=== PATIENT | male | born 1955 ===

== ENCOUNTER → 2021-09-12 | Outpatient (CLI) | payer BC ==
[~2021-09-12] MED LIST: AMLO-186 PO; DEXAMETHASONE PRES.FREE 10 MG/ML VIAL. ONE; DICL50TA2 PO; IOHEXOL 180 MG/ML 10 ML VIAL. ONE; LOSA-73 PO; MESA0.372 PO; POTA-112 PO; SITA1TAB7 PO
--- NOTE | 2021-09-12 11:49 | PDOC1 ---
INITIAL PAIN CONSULT DATE OF SERVICE: DOS: DATE: 09/12/21 TIME: 11:43 CHIEF COMPLAINT: Chief Complaint: Low back and left lower extremity pain HISTORY OF PRESENT ILLNESS: 66-year-old male presents with history of pain in the low back left lower extremity for many years starting 1981 patient reports has had 4 back surgeries since that time over the years when a piece of equipment fell on him when he was at work in 1981 patient reports has had significant pain low back and left lower extremity though is maintained working activity and functionality very effectively over the years patient reports the pain now is increasing over the past 6 to 8 months or so in the low back left lower extremity posterior gluteus posterior thigh posterior calf from the lateral anterior thigh as well but mos tly the posterior aspect and on the left side of the low back patient describes as constant sharp throbbing tingling with numbness change during the day some cramping activity as well patient reports it does generally awaken him from sleep at night and is better with sitting or laying down patient reports it does not affect his bowel bladder control does affect his ability to walk otherwise not use any assistive devices. Patient is had chiropractic treatment the past also physical therapy transforaminal injections at outside facility as well and chiropractic treatment all of which were helpful but only temporarily patient reports his pain level is a 8-9 at its worst for its least and a 6 at its average and is a 6 today. Patient describes his disability rating 0-10 10 being the worst is a 9 with family home responsibilities recreation social activity and life support activity 8 with sexual behavior and self-care activities. Patient of MRI scan showing significant lumbar spinal stenosis L1-L2 3 moderate canal stenosis at L3-4 with previous laminectomy at L1-L2 3 and L3-4 with a subarticular disc herniation which extends inferiorly at L2-3 as well. Patient reports a loss of motor function with significant fatigability of the left lower extremity with ambulation. 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, tonsillectomy, left knee surgery, right knee surgery CURRENT MEDICATIONS: Current Meds: Active Scripts Medications Dose Route/Sig Max Daily Dose Days Date Category Losartan Potassium 50 Mg Tablet 50 Mg PO DAILY 09/12/21 Reported Janumet 50-500 Mg Tablet (Sitagliptin Phos/Metformin Hcl) 1 Each Tablet 1 Tab PO BID 09/12/21 Reported Apriso (Mesalamine) 0.375 Gm Cap.er.24h 800 Mg PO TID 09/12/21 Reported Klor-Con 10 (Potassium Chloride) 10 Meq Tablet.er 1 Tab PO DAILY 30 09/12/21 Reported Diclofenac Potassium 50 Mg Tablet 1 Tab PO PRN TID 09/12/21 Reported Amlodipine Besylate 5 Mg Tablet 5 Mg PO DAILY 09/12/21 Reported ALLERGIES; Allergies: Coded Allergies: No Known Drug Allergies (Unverified , 09/12/21) FAMILY HISTORY: Family Hx: No major medical problems or conditions that he is aware of. SOCIAL HISTORY: Social Hx: Patient does not drink alcohol does not smoke quit many years ago does not use any illegal illicit or recreational drugs is lives with his spouse lives in [facility] REVIEW OF SYSTEMS: ROS: Positive for those items mentioned in history of present illness, all systems are reviewed, otherwise negative ,and are complete full and well-documented on patient's chart. PHYSICAL EXAM: VS: Blood pressure is 140/85 pulse 72 respirations 18 temperature 98.1 F height is 5 feet 8 inches weight 210 pounds. PE: PHYSICAL EXAMINATION: GENERAL: The patient is awake, alert, oriented, appropriate, very pleasant in demeanor HEENT: Shows normocephalic, atraumatic. Extraocular movements are intact and symmetrical. Full elizabeth and mustache. Oral cavity: Mucous membranes moist and pink. NECK: Shows anterior throat supple without palpable lymphadenopathy noted. Swallow reflex symmetrical. CHEST: Shows normal on inspection. Breath sounds are clear bilaterally, coarse but no rales rhonchi or wheezes auscultated. HEART: Shows S1, S2 clear. No murmurs auscultated. ABDOMEN: Soft, nontender, nondistended. No palpable organomegaly is noted. BACK: Shows spine grossly in the midline. Normal-appearing cervical lordotic curvature. There is moderately increased thoracic kyphosis, some flattening of the lumbar lordotic curvature, with well-healed surgical scarring noted.. Lumbar paraspinous muscles show symmetrical on inspection, on palpation shows some moderate tenderness diffusely throughout the upper, middle and lower distribution of the paraspinous muscles bilaterally and also into the lower thoracic paraspinous musculature, firm and tender, but without specific trigger points, without radiation of pain. The patient has good rotational motion of the lumbar spine, both laterally as well as extension and flexion without significant difficulty. No tenderness over the spinous processes, sacrum or sacroiliac regions. EXTREMITIES: Lower extremities show deep tendon reflexes 1+ in the patellar and tendo calcaneus tendons. Motor exam is 5 on a scale of 5 with right dorsiflexion, extension, quadriceps and hamstring flexion and 4/5 on the left. Peripheral pulses are 1+ posterior tibial. No peripheral edema is noted bilaterally. Lower extremities are warm and dry to touch, equal in color and appearance. Straight leg raise noted to be positive on the left at approximately 40 degrees, right side is negative. Gaenslen's and Yeyo's maneuvers are negative bilaterally. SKIN: Shows warm and dry, good turgor. No edema. No sores, rashes or bruising throughout. IMPRESSION: Impression: 66-year-old male with long history low back left lower extremity pain in a radicular fashion MRI scan lumbar spine as noted Arthritis Type 2 diabetes Plan: Options were discussed with patient including conservative managements physical therapies interventional techniques. Patient would like to pursue interventional techniques. We discussed a lumbar epidural steroid injections description as well as anatomical models described procedure. Risks were discussed including but not limited to: Bleeding, infection, possibility of epidural hematoma and subsequent neurological compromise, dural puncture, headaches, spinal cord and/or nerve damage, side effects of steroid medication, and poor results regarding pain control. Patient understands and wished to proceed. Patient return to the clinic in approximate 4 weeks for follow-up, was counseled as to return appointment, activity level, and side effect to be aware of. Procedure is lumbar epidural steroid injection under local anesthetic using sterile prep and drape at the L5-S1 level using C-arm fluoroscopic guidance in both AP and lateral views medications injected is 20 mg dexamethasone +10mL preservative-free normal saline and 2 mL contrast- condition at discharge is stable patient tolerated procedure well had no complications. JANAY GRIFFIN MD Sep 12, 2021 11:49
--- NOTE | 2021-09-12 11:50 | PDOC4 ---
Procedure Note: ICD 10 Code: ICD 10 Code: M54.17 M51.7 M 48.07 M 96.1 Procedure Note: Patient was consented for lumbar epidural steroid injection with fluoroscopic guidance. Risks were discussed including but not limited to: Bleeding, infection, possibility of epidural hematoma and subsequent neurological compromise, dural puncture, headaches, spinal cord and/or nerve damage, side effects of steroid medication, and poor results regarding pain control. Patient understands and wished to proceed. Procedure is lumbar epidural steroid injection under local anesthetic using sterile prep and drape at the L5-S1 level using C-arm fluoroscopic guidance in both AP and lateral views medications injected is 20 mg dexamethasone +10mL preservative-free normal saline and 2 mL contrast- condition at discharge is stable patient tolerated procedure well had no complications. JANAY GRIFFIN MD Sep 12, 2021 11:50
== END | disposition home or self-care (01) ==
LOC: PNCL 10:26
PROVIDERS: ATTEND Anesthesiology
DX: M54.50 Low back pain, unspecified (principal); M51.17 Intervertebral disc disorders with radiculopathy, lumbosacral region; M48.07 Spinal stenosis, lumbosacral region; M96.1 Postlaminectomy syndrome, not elsewhere classified; M19.90 Unspecified osteoarthritis, unspecified site; I10 Essential (primary) hypertension; E11.9 Type 2 diabetes mellitus without complications; Z79.899 Other long term (current) drug therapy
CPT/HCPCS: 62323; J1100; Q9965

== ENCOUNTER → 2021-10-16 | Outpatient (CLI) | payer BC ==
--- NOTE | 2021-10-16 15:11 | PDOC ---
Progress Note - Pain Clinic Date of Service: DOS: DATE: 10/16/21 TIME: 15:07 Diagnosis: Dx: Lumbar radiculopathy with lumbar degenerative disc disease lumbar spinal stenosis and lumbar postlaminectomy syndrome History or Present Illness: HPI: 66-year-old male returns for follow-up status post lumbar epidural steroid injection x1. Patient reports 100% improvement in the pain in his left leg but now has a new pain pain rating to the right lower extremity which he did not have previously patient reports his left leg is doing very well reports pain on the right side radiating the posterior gluteus posterior thigh posterior calf not as intense as the left side but still significant and causing some increased pain with activity walking standing and changing positions patient reports generally does not awaken her from sleep at night but has over the past week about once a night patient reports no loss of motor function rates his pain a 7 on scale 10 is worse over the past week 5 on average 5 its least again this is all in the right lower extremity and low back patient reports that sharp and shooting now where the left leg is doing much better patient is increase his activity with the left side much more comfortably try with greater ease and comfort sleeping better for the most part. Patient reports no bowel or bladder incontinence. Physical Exam: VS: Blood pressure is 142/71 pulse 80 respirations 18 temperature 97.0 F weight is 213 pounds. PE: PHYSICAL EXAMINATION: GENERAL: The patient is awake, alert, oriented, appropriate, very pleasant in demeanor HEENT: Shows normocephalic, atraumatic. Extraocular movements are intact and symmetrical. Full elizabeth and mustache. Oral cavity: Mucous membranes moist and pink. Dentition is intact. NECK: Shows anterior throat supple without palpable lymphadenopathy noted. Swallow reflex symmetrical. CHEST: Shows normal on inspection. Breath sounds are clear bilaterally, coarse but no rales or rhonchi. HEART: Shows S1, S2 clear. No murmurs auscultated. ABDOMEN: Soft, nontender, nondistended. No palpable organomegaly is noted. BACK: Shows spine grossly in the midline. Normal-appearing cervical lordotic curvature. There is slightly increased thoracic kyphosis, some minor flattening of the lumbar lordotic curvature. Lumbar paraspinous muscles show symmetrical on inspection, on palpation shows some moderate tenderness diffusely throughout the upper, middle and lower distribution of the paraspinous muscles, but without specific trigger points, without radiation of pain. The patient has good rotational motion of the lumbar spine, both laterally as well as extension and flexion without significant difficulty. EXTREMITIES: Lower extremities show deep tendon reflexes 1+ in the patellar and tendo calcaneus tendons. Motor exam is 5 on a scale of 5 with right dorsiflexion, extension, quadriceps and hamstring flexion and 4/5 on the left. Peripheral pulses are 1+ posterior tibial. No peripheral edema is noted bilaterally. Lower extremities are warm and dry. SKIN: Shows warm and dry, good turgor. No edema. No sores, rashes or bruising throughout. Procedure: Procedure: Options discussed with patients old chart was reviewed as his current medication regimen updated current review of systems updated today as well. We will proceed with a lumbar epidural steroid injection today with fluoroscopic guidance. Risks were discussed including but not limited to: Bleeding, infection, possibility of epidural hematoma and subsequent neurological compromise, dural puncture, headaches, spinal cord and/or nerve damage, side effects of steroid medication, and poor results regarding pain control. Patient understands and wished to proceed. Patient will return to the clinic in approx imate 2 weeks for follow-up, was counseled as to return appointment, activity level, and side effects to be aware of. Medication Injected: Med Injected: Procedure is lumbar epidural steroid injection under local anesthetic using sterile prep and drape at the L5-S1 level using C-arm fluoroscopic guidance in both AP and lateral views medications injected is 20 mg dexamethasone +10mL preservative-free normal saline and 2 mL contrast- condition at discharge is stable patient tolerated procedure well had no complications. Condition at Discharge: Condition at Discharge: Condition at discharge stable, patient tolerated the procedure well and had no complications. JANAY GRIFFIN MD Oct 16, 2021 15:11
--- NOTE | 2021-10-16 15:11 | PDOC4 ---
Procedure Note: ICD 10 Code: ICD 10 Code: M54.17 M51.7 M4 8.07 M 96.1 Procedure Note: Patient was consented for lumbar epidural steroid injection with fluoroscopic guidance. Risks were discussed including but not limited to: Bleeding, infection, possibility of epidural hematoma and subsequent neurological compromise, dural puncture, headaches, spinal cord and/or nerve damage, side effects of steroid medication, and poor results regarding pain control. Patient understands and wished to proceed. Procedure is lumbar epidural steroid injection under local anesthetic using sterile prep and drape at the L5-S1 level using C-arm fluoroscopic guidance in both AP and lateral views medications injected is 20 mg dexamethasone +10mL preservative-free normal saline and 2 mL contrast- condition at discharge is stable patient tolerated procedure well had no complications. JANAY GRIFFIN MD Oct 16, 2021 15:11
== END | disposition home or self-care (01) ==
LOC: PNCL 13:11
PROVIDERS: ATTEND Anesthesiology
DX: M51.16 Intervertebral disc disorders with radiculopathy, lumbar region (principal); M48.061 Spinal stenosis, lumbar region without neurogenic claudication; M96.1 Postlaminectomy syndrome, not elsewhere classified; Z79.899 Other long term (current) drug therapy
CPT/HCPCS: 62323; J1100; Q9965

== ENCOUNTER 2021-10-21 21:59 | Emergency (ER) | payer BC ==
[~2021-10-21] VITALS: Ht 172.7 cm; Wt 95.5 kg
[~2021-10-21 21:59] MED LIST changes: -DEXAMETHASONE PRES.FREE 10 MG/ML VIAL. ONE; -IOHEXOL 180 MG/ML 10 ML VIAL. ONE
[2021-10-21 22:05] VITALS: BP 136/82
[2021-10-21] MEDS ORDERED: OXYC1TAB15 PO (22:40)
--- NOTE | 2021-10-21 22:41 | PHYS DOC ---
Past Medical History Past Medical History: Sciatica Past Surgical History: No Surgical History Smoking Status: Current Every Day Smoker Alcohol Use: None General Adult EDM: Chief Complaint: BACK PAIN OR INJURY HPI: HPI: Patient is a 66 year old male with history of chronic low back pain with sciatica presenting today complaining of 9 out of 10 right low back pain radiating to the right lower. He states he received a lumbar epidural steroid injection on October 16, 2021 at the pain clinic. He states the pain had improved and started coming back over the weekend and it feels similar to the time he had not received the shot. Patient denies falling. Denies any loss of bowel/bladder function. Denies any numbness or tingling to bilateral lower extremities Review of Systems: Review of Systems: Constitutional: Denies fever or chills. [] GI: Denies abdominal pain, nausea, vomiting, bloody stools or diarrhea. [] : Denies dysuria. [] Musculoskeletal: Reports right low back pain radiating to the right lower extremity Integument: Denies rash. [] Neurologic: Denies headache, focal weakness or sensory changes. [] Psychiatric: Denies depression or anxiety. [] Heart Score: C/O Chest Pain: N/A Risk Factors: Risk Factors: DM, Current or recent (<one month) smoker, HTN, HLP, family history of CAD, obesity. Risk Scores: Score 0 - 3: 2.5% MACE over next 6 weeks - Discharge Home Score 4 - 6: 20.3% MACE over next 6 weeks - Admit for Clinical Observation Score 7 - 10: 72.7% MACE over next 6 weeks - Early Invasive Strategies Allergies: Allergies: Allergies Coded Allergies Type Severity Reaction Last Updated Verified No Known Drug Allergies 09/12/21 No Physical Exam: PE: Constitutional: Well developed, well nourished, no acute distress, non-toxic appearance. [] Abdomen: Bowel sounds normal, soft, no tenderness, no masses, no pulsatile masses. [] Skin: Warm, dry, no erythema, no rash. [] Back: No tenderness, no CVA tenderness. [] Extremities: Old healed incision noted to the lumbar spine. Moderate right SI joint tenderness, no cyanosis, no clubbing, ROM intact, no edema straight leg raise was not done, patient comfortable bending down or sitting on the. Neurologic: Alert and oriented X 3, normal motor function, normal sensory function, no focal deficits noted. [] Psychologic: Affect normal, judgement normal, mood normal. [] Current Patient Data: Vital Signs: Vital Signs Date Time Temp Pulse Resp B/P (MAP) Pulse Ox O2 Delivery O2 Flow Rate FiO2 10/21/21 22:05 98.1 89 16 136/82 (100) 98 Room Air 98.1 EKG: EKG: [] Radiology/Procedures: Radiology/Procedures: [] Course & Med Decision Making: Course & Med Decision Making Pertinent Labs and Imaging studies reviewed. (See chart for details) This a 66-year-old male patient presented to the ED today complaining of right low back pain radiating to the right lower extremity, reports this pain is chronic, reports receiving an a lumbar epidural steroid injection last week with improvement of symptoms but then over the weekend the pain came back. Patient denies anything new about this pain today. Denies any loss of bowel/bladder function. Denies any numbness or tingling to bilateral lower extremities. Requesting pain medicine and to be discharged home. He states he has access to MRI, neurosurgeon and a pain clinic doctor and does not want any further work-up in the ED. He was given Dilaudid IM in the ED as well as Norflex. Follow-up with his own doctors in the course of this week. Adrianna Disclaimer: Adrianna Disclaimer: This electronic medical record was generated, in whole or in part, using a voice recognition dictation system. Departure Departure Impression: Primary Impression: Chronic low back pain Additional Impression: Sciatica, right side Disposition: 01 HOME / SELF CARE / HOMELESS Condition: STABLE Referrals: JANAY LAMBERT (PCP) Follow-up as soon as you can BABS MATA MD Follow-up as soon as you can JANAY GRIFFIN MD follow up as soon as you can Patient Instructions: Back Pain, Adult, Sciatica Additional Instructions: You were seen for back pain with sciatica to the right side. Please contact your neurosurgeon as well as pain clinic doctor tomorrow morning and set up a follow-up appointment. Scripts Oxycodone/Apap 5-325 (PERCOCET 5-325 MG TABLET ) 1 Each Tablet 1 TAB PO PRN BID PRN for PAIN MDD 3, #12 TAB 0 Refills Prov: MUTUNGA,CARLTON M PRIMARY SPECIAL EDUCATOR 10/21/21 CARLTON BA APRN Oct 21, 2021 22:41
[2021-10-21] MEDS ORDERED: HYDROmorphone 2 MG/ML INJ. IM ONE (22:45)
[2021-10-21] MEDS ORDERED: ORPHENADRINE CITRATE 60 MG/2 ML VIAL. IM ONE (22:45)
[2021-10-24] MEDS ORDERED: OXYC1TAB15 PO (11:41)
[2021-10-24] MEDS ORDERED: OXYC1TAB22 PO (12:42)
== END 2021-10-21 23:10 | disposition home or self-care (01) ==
LOC: ER 21:59
DX: G89.29 Other chronic pain (principal); M54.41 Lumbago with sciatica, right side; F17.200 Nicotine dependence, unspecified, uncomplicated
CPT/HCPCS: 96372; 99284; J1170; J2360

== ENCOUNTER → 2021-10-24 | Outpatient (CLI) | payer BC ==
[2021-10-21 22:05] VITALS: BP 136/82
[~2021-10-24] MED LIST changes: +OXYC1TAB15 PO; +OXYC1TAB22 PO
--- NOTE | 2021-10-24 12:38 | PDOC ---
Progress Note - Pain Clinic Date of Service: DOS: DATE: 10/24/21 TIME: 12:34 Diagnosis: Dx: Lumbar radiculopathy lumbar degenerative disease lumbar spinal stenosis and lumbar postlaminectomy syndrome History or Present Illness: HPI: 66-year-old male returns for follow-up status post lumbar epidural steroid injection x2 on October 16, 2021. Patient reports he did very well initially but the pain returned significantly to the point where he went to the emergency room about 3 days ago with excruciating pain in the low back and now in the right lower extremity posterior gluteus posterior thigh posterior calf to the ankle worse with walking and standing and is having difficulty with pain with weightbearing at all. Patient reports he can usually walk little further and keep the pain at bay but lately it is becoming much more excruciating and is having significant fatigability in the right leg but no loss of motor function patient reports her left leg is doing much better is near 100% improved but the right leg is severely debilitating patient rates his pain as a 10 on scale 10 is worst average and least over the past week and is a 10 today patient described as stabbing shooting sharp in the leg as well as in the low back on the right side only. Patient reports no bowel or bladder incontinence no loss of motor function but significant fatigability and weakness sensation in the right leg. Patient reports the pain is waking him from sleep about every 2-3 hours as well. Physical Exam: VS: Blood pressure is 1 6479 pulse 81 respirations 20 temperature 98.1 F height is 5 foot 8 inches weight is 211 pounds. PE: PHYSICAL EXAMINATION: GENERAL: The patient is awake, alert, oriented, appropriate, very pleasant in demeanor HEENT: Shows normocephalic, atraumatic. Extraocular movements are intact and symmetrical. Oral cavity: Mucous membranes moist and pink. Dentition is intact. NECK: Shows anterior throat supple without palpable lymphadenopathy noted. Swallow reflex symmetrical. CHEST: Shows normal on inspection. Breath sounds are clear bilaterally. HEART: Shows S1, S2 clear. No murmurs auscultated. ABDOMEN: Soft, nontender, nondistended. No palpable organomegaly is noted. No rebound or guarding demonstrated. BACK: Shows spine grossly in the midline. Normal-appearing cervical lordotic curvature. There is moderately increased thoracic kyphosis, some mild fla ttening of the lumbar lordotic curvature. Lumbar paraspinous muscles show symmetrical on inspection, on palpation shows some moderate tenderness diffusely throughout the upper, middle and lower distribution of the paraspinous muscles without specific trigger points, without radiation of pain. The patient has good rotational motion of the lumbar spine, both laterally as well as extension and flexion without significant difficulty. No tenderness over the spinous processes, sacrum or sacroiliac regions. EXTREMITIES: Lower extremities show deep tendon reflexes 1+ in the patellar and tendo calcaneus tendons. Motor exam is 5 on a scale of 5 with right dorsiflexion, extension, quadriceps and hamstring flexion and 4/5 on the left. Peripheral pulses are 1+ posterior tibial. No peripheral edema is noted bilaterally. Lower extremities are warm and dry to touch, equal in color and appearance. SKIN: Shows warm and dry, good turgor. No edema. No sores, rashes or bruising throughout. Procedure: Procedure: Options were discussed with the patient. Patient's old chart was reviewed his current medication regimen updated current review of systems updated today as well. We will prescribe Medrol Dosepak as patient is too early for another epidural steroid injection per insurance restrictions, also Percocet 10 mg patient was given instructions as well as side effects beware of each of the medications and will follow up in approximately 2 weeks as scheduled. We discussed that if the pain gets worse over the weakness gets worse and/or any loss of control bowel bladder he will present to the emergency department as we ll and or follow-up with his neurosurgeon. Patient understands. Medication Injected: Med Injected: None Condition at Discharge: Condition at Discharge: Condition at discharge is stable. JANAY GRIFFIN MD Oct 24, 2021 12:38
== END | disposition home or self-care (01) ==
LOC: PNCL 11:14
PROVIDERS: ATTEND Anesthesiology
DX: M51.16 Intervertebral disc disorders with radiculopathy, lumbar region (principal); M48.061 Spinal stenosis, lumbar region without neurogenic claudication; M96.1 Postlaminectomy syndrome, not elsewhere classified; F17.210 Nicotine dependence, cigarettes, uncomplicated; Z79.899 Other long term (current) drug therapy
CPT/HCPCS: G0463

== ENCOUNTER → 2021-11-17 | Outpatient (CLI) | payer BC ==
[2021-10-21 22:05] VITALS: BP 136/82
--- NOTE | 2021-11-17 10:51 | PDOC ---
Progress Note - Pain Clinic Date of Service: DOS: DATE: 11/17/21 TIME: 10:48 Diagnosis: Dx: Lumbar radiculopathy with lumbar degenerative disease lumbar spinal stenosis and lumbar postlaminectomy syndrome History or Present Illness: HPI: 66-year-old male returns for follow-up status post lumbar epidural steroid injection x2. Patient reports doing very well about 70% improvement and the pain is actually staying at about that level patient reports has been increase his activity with greater ease and comfort and pace himself but is pushing himself at the same time with increased activity patient reports even with the increased activity and pushing his comfort level to an extent with the pain is still doing well patient reports pain low back and radiating down the right posterior extremity posterior gluteus posterior thigh and into the calf patient reports is a 6 on scale 10 is worse over the past week 5 on average 4 to [place] is a 4 today. Patient reports he is sleeping better at night generally not awaken from sleep currently has been increase activity with greater ease and comfort walking greater distances doing household activities work activities taking less pain medication as well. Patient reports no bowel or bladder incontinence. Physical Exam: VS: Blood pressure is 149/71 pulse 75 respirations 18 temperature 98.2 F height is 5 feet 8 inches weight is 211 pounds. PE: PHYSICAL EXAMINATION: GENERAL: The patient is awake, alert, oriented, appropriate, very pleasant in demeanor HEENT: Shows normocephalic, atraumatic. Extraocular movements are intact and symmetrical. Oral cavity: Mucous membranes moist and pink. Dentition is intact. NECK: Shows anterior throat supple without palpable lymphadenopathy noted. Swallow reflex symmetrical. CHEST: Shows normal on inspection. Breath sounds are clear bilaterally, no rales or rhonchi auscultated. HEART: Shows S1, S2 clear. No murmurs auscultated. ABDOMEN: Soft, nontender, nondistended. No palpable organomegaly is noted. BACK: Shows spine grossly in the midline. Normal-appearing cervical lordotic curvature. There is slightly increased thoracic kyphosis, some moderate flattening of the lumbar lordotic curvature with well-healed surgical scarring noted. Lumbar paraspinous muscles show symmetrical on inspection, on palpation shows some moderate tenderness diffusely throughout the upper, middle and lower distribution of the paraspinous muscles without specific trigger points, without radiation of pain. The patient has good rotational motion of the lumbar spine, both laterally as well as extension and flexion without significant difficulty. No tenderness over the spinous processes, sacrum or sacroiliac regions. EXTREMITIES: Lower extremities show deep tendon reflexes 1+ in the patellar and tendo calcaneus tendons. Motor exam is 5 on a scale of 5 with right dorsiflexion, extension, quadriceps and hamstring flexion and 4/5 on the left. Peripheral pulses are 1+ posterior tibial. No peripheral edema is noted bilaterally. Lower extremities are warm and dry to touch, equal in color and appearance. SKIN: Shows warm and dry, good turgor. No edema. No sores, rashes or bruising throughout. Procedure: Procedure: Options discussed with patient. Patient's chart was reviewed his current medication regimen updated current review of systems updated today as well. We will hold on any further injections at this time as patient is doing a fair amount better and would like to increase his activity and see if the pain level maintains. Encouraged him to increase activity gradually and cautiously to do what is comfortable. Patient understands and will follow up at this time on as- needed basis. Medication Injected: Med Injected: None Condition at Discharge: Condition at Discharge: Condition at discharge is stable. JANAY GRIFFIN MD November 17, 2021 10:51
== END | disposition home or self-care (01) ==
LOC: PNCL 10:11
PROVIDERS: ATTEND Anesthesiology
DX: M51.16 Intervertebral disc disorders with radiculopathy, lumbar region (principal); M48.061 Spinal stenosis, lumbar region without neurogenic claudication; M96.1 Postlaminectomy syndrome, not elsewhere classified; F17.210 Nicotine dependence, cigarettes, uncomplicated
CPT/HCPCS: 99212; G0463